=== PATIENT | female | born 1980 | race Caucasian/White ===

== ENCOUNTER 2017-08-28 11:20 | Emergency (ER) | payer OTHER ==
[~2017-08-28] VITALS: Ht 170.2 cm; Wt 82.2 kg
[2017-08-28 11:21] VITALS: BP 152/67; PULSE 96; RESP 16; TEMP 99; O2SAT 98
[2017-08-28] MEDS ORDERED: DICY10CA12 PO (11:35)
[2017-08-28] MEDS ORDERED: BUPR1TAB70 PO (11:35)
[2017-08-28] MEDS ORDERED: CLIN300C5 PO (11:45)
--- NOTE | 2017-08-28 11:45 | PD ---
HPI Chief Complaint: Oral / Dental Pain or Problem Time Seen by Provider: 11:31 Travel History International Travel<30 days: No Contact w/Intl Traveler<30days: No Traveled to known affect area: No History of Present Illness HPI This is a 37-year-old female here with left upper dental pain 1 week. She reports gum swelling and redness. No fever chills. No swelling to the floor the mouth or difficulty swallowing. Symptom severity is moderate. No aggravating or alleviating factors. PFSH Past Medical History ?: Not LMP: tubal ligation Social History Alcohol Use: Yes Tobacco Use: Yes (03/07 PPD) Substance Use: No Allergies-Medications (Allergen,Severity, Reaction): Coded Allergies: Penicillins (Verified Allergy, Severe, Hallucinations, 08/28/17) Sulfa (Sulfonamide Antibiotics) (Verified Allergy, Severe, Hallucinations , 08/28/17) Reported Meds & Prescriptions Reported Meds & Active Scripts Active Reported Dicyclomine (Dicyclomine HCl) 10 Mg Cap 10 Mg PO QID PRN Bupropion HCl ER 12 HR (Bupropion HCl) 100 Mg Tab 150 Mg PO Q12HR Review of Systems Except as stated in HPI: all other systems reviewed are Neg General / Constitutional: No: Fever Physical Exam Narrative GENERAL: Alert and well-appearing 37-year-old female SKIN: Warm and dry. HEAD: Normocephalic. EYES: No injection or drainage. ENT: Widespread dental decay. Tooth #10, 11, 12 decayed with surrounding gum erythema. No swelling to the floor the mouth. Uvula is midline. Airways patent. NECK: Supple. No lymphadenopathy CARDIOVASCULAR: Regular rate and rhythm without murmurs, gallops, or rubs. RESPIRATORY: Breath sounds equal bilaterally. No accessory muscle use. Data Data Last Documented VS Vital Signs Date Time Temp Pulse Resp B/P (MAP) Pulse Ox O2 Delivery O2 Flow Rate FiO2 08/28/17 11:21 99.0 96 16 152/67 (95) 98 MDM Medical Decision Making Medical Screen Exam Complete: Yes Emergency Medical Condition: Yes Differential Diagnosis Dental decay, dental abscess, periodontal disease Narrative Course 37-year-old female here with widespread dental decay. She is nontoxic appearing. She will be treated for dental infection with clindamycin. Diagnosis Primary Impression: Dental infection Referrals: Dentist Additional Instructions: Antibiotics as directed. Follow-up with the dentist. Tylenol or ibuprofen for pain. Scripts Clindamycin (Clindamycin) 300 Mg Cap 300 MG PO TID for Infection for 7 Days, CAP 0 Refills Prov: Jane Pérez 08/28/17 Disposition: 01 DISCHARGE HOME Condition: Stable Jane Pérez Aug 28, 2017 11:45
== END 2017-08-28 12:02 | disposition home or self-care (01) ==
LOC: PHEFT 11:20
DX: K04.7 Periapical abscess without sinus (principal); F17.200 Nicotine dependence, unspecified, uncomplicated
CPT/HCPCS: 99283